=== PATIENT | female | born 1975 | race Caucasian/White ===

== ENCOUNTER 2016-07-07 13:27 | Emergency (ER) | payer OTHER ==
[~2016-07-07] VITALS: Ht 167.6 cm; Wt 129.6 kg
[2016-07-07 13:52] VITALS: BP 187/111; PULSE 108; RESP 18; O2SAT 96
--- NOTE | 2016-07-07 14:07 | ED.REPORT ---
HPI-Head Prob / Injury Date of Service July 07, 2016 ED Provider: Chanelle Menjivar History of Present Illness: 41-year-old female here for right eye lid laceration. 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 She did not lose consciousness. She did sustain a laceration to her right eyelid. It was cleaned out at work with saline solution and a butterfly bandage was placed. In the last 5 hours she has not had a headache, dizziness, altered mental status or any other complaints. Tetanus is not up-to-date Nursing Notes Stated Complaint: FELL AT WORK HIT RT EYE Chief Complaint: Multiple Trauma/Fall Nursing Notes Reviewed: Yes Allergies: Coded Allergies: Penicillins (Verified Allergy, Intermediate, VOMITTING AND RASH, 07/07/16) Sulfa (Sulfonamide Antibiotics) (Verified Allergy, Intermediate, VOMITTING ,RASH, 07/07/16) fluticasone (Verified Allergy, Intermediate, BLISTERS, 07/07/16) lanolin (Verified Allergy, Mild, BLISTERS, 07/07/16) General Time Seen by Provider: 14:07 Chief Complaint Laceration Hx Obtained From: Patient Arrived By: Walk-in Onset Occurred: 1 - 4 hours ago Symptom Duration: Since onset Progression Since Onset: Constant Caused by: Fall from (GLF) Context: Occurred at: Workplace Location: : Eye right Severity: Current: Mild Severity: Maximum: Mild Immunizations: Tetanus not up to date Similar Sx Previous: No Past Medical History Past Medical History Notes: diabetes, Review of Systems Review of Systems Note: lac R upper lid Basic Review of Systems Respiratory: No shortness of breath, No cough, No wheeze Cardiovascular: No chest pain, No dyspnea on exertion, No orthopnea, No parox noct dyspnea, No palpitations Psychiatric: Normal thought content Constitutional: Denies: Fever Eyes: Denies: Blurred bilateral, Discharge bilateral, Eye pain bilateral, Visual loss bilateral GI: Denies: Vomiting Musculoskeletal: Denies: Back pain, Neck pain Neurologic: Denies: Abnormal movement, Change LOC, Dizziness, Headache, Lightheaded, Problem walking, Weakness Complete sys rev & neg: except as marked. Physical Exam Initial Vital Signs Vital Signs (First) Date Time Temp Pulse Resp B/P Pulse Ox O2 Delivery O2 Flow Rate FiO2 07/07/16 13:52 36.1 108 18 187/111 96 Room Air Initial VS: Reviewed, Vital signs normal Respiratory: Breath sounds normal Cardiovascular: Regular rate & rhythm, Heart sounds normal, Intact distal pulses Extremities: Vascular intact, Neuro intact, No swelling, No tenderness Skin: Warm, Dry, No cyanosis Psychiatric: Mood/affect normal, Behavior normal, Normal thought content Head / Eyes: Normocephalic, PERRL, EOMI, No nystagmus, Conjunctiva NL mild swelling to R upper eye lid. mild tenderness, eccymosis present. 2cm lac noted to lateral eye lid. butterfly bandages in place. Wound already closed, not able to open with gentle pressure Neck: Atraumatic, Supple, Full range of motion, No swelling, Non-tender, No midline vertebral tend, No masses Respiratory / Chest: Breath sounds NL, Breath sounds = bilat, No respiratory distress, No rales, No rhonchi, No wheezing Cardiovascular: Heart rate NL, Regular rhythm, Heart sounds NL, Peripheral circulation NL Interpretation & Diagnostics Interpretation & Diagnostics: wound already closed after irrigation at her workplace. will steri strip and have her watch for signs of infection. Pt is not UTD on tetanus. PT declines injection today as she is afraid of needles. Discussed risk of not getting tetanus vaccine today, including risk of tetanus. Gave her symtpoms to watch for and when to f/u. pt verbalizes understanding of risk Discharge & Departure Shift Change Sign-Out Response to Therapy: Improved Primary Impression: Laceration, eyelid, right Encounter type: initial encounter Qualified Code: S01.111A - Laceration without foreign body of right eyelid and periocular area, initial encounter Disposition: Home All VS Reviewed: Yes Condition: Stable Patient Instructions: Laceration (GEN) Additional Instructions: Watch for signs of infection including redness, purulent drainage, increasing pain and follow up immediately if these occur. Return to ER if you get severe headaches, projectile vomiting, altered mental status or any other serious concerning signs. Apply ice frequently to wound. Keep Steri-Strips in place they will follow-up in a few days. Wash with soap and water gently starting in 1-2 days. Follow up as discussed Referrals: NOPCP (PCP) Edna Granado MD (Family) EDSupervising Provider for APC: Gilberto Briggs MD, Linnea K ARNP July 07, 2016:07
[2016-07-07 15:13] VITALS: PULSE 97; RESP 16; O2SAT 96
== END 2016-07-07 15:14 | disposition home or self-care (01) ==
LOC: SED 13:27
DX: S01.111A Laceration without foreign body of right eyelid and periocular area, initial encounter (principal); W01.198A Fall on same level from slipping, tripping and stumbling with subsequent striking against other object, initial encounter; Y93.9 Activity, unspecified; Y92.511 Restaurant or cafe as the place of occurrence of the external cause; Y99.0 Civilian activity done for income or pay; E11.9 Type 2 diabetes mellitus without complications; Z88.0 Allergy status to penicillin; Z88.2 Allergy status to sulfonamides; Z88.8 Allergy status to other drugs, medicaments and biological substances